=== PATIENT | male | born 1995 | race Caucasian/White ===

== ENCOUNTER 2025-03-15 20:14 | Emergency (ER) | payer BC, SELFPAY ==
[2025-03-15 20:54] VITALS: BP 124/71; PULSE 100; RESP 18; TEMP 36.7; O2SAT 95; BMI 28.8
--- NOTE | 2025-03-15 22:42 | PC.NURSE ---
Laceration to the right hand with sanguineous drainage. Cleaned and dry dressing applied. Pt tolerated well.
[2025-03-15] MEDS: Lidocaine HCl 1%/Epi 1:100,000 10 ML VIAL INFILTRATI (23:22)
--- NOTE | 2025-03-15 23:58 | ED_ITS ---
HPI - General Adult General Chief complaint: Wound/Laceration Stated complaint: rt hand wound Time Seen by Provider: 03/15/25 22:23 Source: patient Limitations: no limitations History of Present Illness ED Provider: Kindra Boss PA-C HPI narrative: 29-year-old otherwise healthy male presents with right hand laceration. Patient was in the kitchen trying to open a can, he subsequently lacerated the palm. Tetanus up-to-date. Bleeding currently controlled. Related Data Allergies Allergy/AdvReac Type Severity Reaction Status Date / Time Sulfa (Sulfonamide AdvReac Nausea and Verified 03/15/25 20:55 Antibiotics) Vomiting Review of Systems Review of Systems: Yes all other systems are reviewed and are negative Constitutional: Constitutional: Denies fatigue and Denies fever(s) Musculoskeletal: Musculoskeletal: Denies arthralgias and Denies joint swelling Integumentary/Breasts: Skin/Breast: Reports wounds Endocrine: Endocrine: Denies fatigue PMFSH Past Medical History Attestation statement: The following information was validated with the patient. Social History Social History Smoked in Last 30 Days: No Use of substances other than those prescribed or required for medical reasons: No Advance Directives: No Advance Directives Information Provided: No Do you have a plan to hurt others: No Plan Physical Exam ED Vital Signs: Vital Signs - 24 hr 03/15/25 20:54 Temperature 98.1 F Pulse Rate 100 Respiratory Rate 18 Blood Pressure 124/71 Pulse Oximetry 95 Oxygen Delivery Method Room Air BMI result Body Mass Index 28.8 Const Other: Alert well-appearing Orientation/consciousness: patient oriented x3 Resp Effort & Inspection: normal respiratory effort Cardio Other: Normal peripheral perfusion Skin Other: Warm dry no rash Neuro General: patient oriented x3, gait normal, no focal motor deficits and CN's II- XI intact bilaterally Extrem Other: 4 cm linear, superficial laceration noted over palmar aspect of the right hand inferior to the 5th digit, not currently bleeding Psych Other: Cooperative Medications Administered Discontinued Medications Generic Name Dose Route Start Last Admin Trade Name Freq PRN Reason Stop Dose Admin Lidocaine/Epinephrine 10 ml 03/15/25 23:17 03/15/25 23:22 Lidocaine Hcl 1%/Epi 1:100,000 10 Ml Vial INFILTRATI 03/15/25 23:18 10 ml ONCE ONE Administration Procedures Laceration Laceration 1: Site: hand Side (If applicable): right Size (cm): 4 Description: linear Depth: simple, single layer Local Anesthetic: lidocaine 1% and with epi Amount of anesthesia used (mL): 3 Pre-repair: irrigated extensively Skin layer closed with: nylon Size (cm): 3-0 Number of sutures: 8 Technique: simple, interrupted Medical Decision Making Medical Decision Making MDM Narrative: 29-year-old otherwise healthy male presents with right hand laceration. Patient was in the kitchen trying to open a can, he subsequently lacerated the palm. Tetanus up-to-date. Bleeding currently controlled. No chronic issues History: Per patient I have considered the following differential diagnoses: Fracture, dislocation, abrasion, excoriation, laceration Plan: Patient has a simple laceration, we will repair. No indication for imaging. Discharge Plan Discharge Clinical Impression: Laceration of hand, right Patient Disposition: Home, Self-Care Instructions: Laceration (ED) Additional Instructions: 8 stitches were used to repair the laceration. They can be removed in 7 days. Watch for signs of infection which will include redness, swelling, warmth, pus draining from the site, read line tracking up your arm or fever. If you develop any of these symptoms, seek medical attention. Otherwise follow up with your primary care provider as needed for wound check and/or suture removal. Print Language: [place]
[2025-03-16 00:18] VITALS: BP 119/64; PULSE 91; RESP 16; TEMP 36.7; O2SAT 96
== END 2025-03-16 00:19 | disposition home or self-care (01) ==
PROVIDERS: Emergency Provider Emergency Medicine
DX: S61.411A Laceration without foreign body of right hand, initial encounter (principal); W26.8XXA Contact with other sharp object(s), not elsewhere classified, initial encounter; Y93.9 Activity, unspecified; Y92.000 Kitchen of unspecified non-institutional (private) residence as the place of occurrence of the external cause; Y99.9 Unspecified external cause status
CPT/HCPCS: 12002; 99284; J2004